=== PATIENT | male | born 1965 | race Caucasian/White ===

== ENCOUNTER 2020-12-13 06:19 | Emergency (ER) | payer BC, SELFPAY ==
--- NOTE | ~2020-12-13 | XR_ITS ---
EXAMINATION: XR KNEE, LEFT CLINICAL INFORMATION: Pain COMPARISON: 07/07/2014 TECHNIQUE: Four views of the left knee. FINDINGS: Total knee arthroplasty with patellar resurfacing. Tibial component is cemented. Components in expected position. No periprosthetic lucency to suggest loosening or infection. Small knee joint effusion suspected. Prepatellar soft tissue swelling is present. XR/XR knee LT 4V IMPRESSION: No acute fracture, dislocation, evidence of hardware failure or complication. Small knee joint effusion.
[2020-12-13 06:34] VITALS: BP 125/86; PULSE 110; RESP 18; TEMP 37.3; O2SAT 95; BMI 29.2
--- NOTE | 2020-12-13 06:54 | ED.FEVER ---
HPI - Fever General Chief Complaint: Nausea/Vomiting/Diarrhea Stated Complaint: Covid symptoms Time Seen by Provider: 12/13/20 06:44 Source: patient Mode of arrival: ambulatory Limitations: no limitations History of Present Illness MD elicited complaint: fever and other (L knee pain, tick bite 3 days ago, COVID swab) Onset (ago): day(s) (2) Context: other (tick bite) Exacerbating factors: nothing Relieving factors: nothing Associated symptoms: diarrhea and other (myalgias, weakness) Related Data Previous Rx's Medication Instructions Recorded doxycycline hyclate 100 mg capsule 100 mg PO BID 14 Days #28 cap 12/13/20 ondansetron 4 mg disintegrating 4 mg PO Q8H PRN #20 tab 12/13/20 tablet Allergies Allergy/AdvReac Type Severity Reaction Status Date / Time No Known Allergies Allergy Verified 12/13/20 06:27 Review of Systems Review of Systems: Constitutional : No Weight loss, pos Fever, pos Chills, pos Fatigue, pos Malaise ENT/Mouth : No sore throat, No Rhinorrhea Eyes: No Eye Pain, No Swelling, No Redness Cardiovascular : No Chest Pain, No SOB, No Dyspnea on Exertion, No Orthopnea, No Edema, No Palpitations Respiratory : No Cough, No Sputum, No Wheezing Gastrointestinal : No Nausea, No Vomiting, pos Diarrhea, No Constipation, No abdominal Pain, No Hematochezia, No Melena Genitourinary : No Dysuria, No Urinary Frequency, No Hematuria, Musculoskeletal : pos joint pain, No Myalgias, pos Joint Swelling Skin : No Skin Lesions, No rash Neuro : No Weakness, No Numbness, No Dizziness, No Headache Psych : No Anxiety/Panic, No Depression Heme/Lymph: No Bruising, No Bleeding,No Lymphadenopathy Endocrine : No Polyuria, No Polydipsia All other systems reviewed and are negative PMFSH Past Medical History Medical History FH: total knee replacement Social History Social History (Updated 12/13/20 @ 07:05 by Opal Eli DO) Patient Tobacco Use Status: Never used Tobacco Advance Directives: No Physical Exam Vital Signs: Vital Signs: Last Vital Signs Temp 99.1 F 12/13/20 06:34 Pulse 110 H 12/13/20 06:34 Resp 18 12/13/20 06:34 BP 125/86 12/13/20 06:34 Pulse Ox 95 12/13/20 06:34 Body Mass Index 29.2 Appearance: Alert. Oriented X3. No acute distress. Eyes: Pupils equal, round and reactive to light. ENT: Pharynx normal. Neck: Normal inspection. Neck supple. CVS: Normal heart rate and rhythm. Pulses normal. Respiratory: No respiratory distress. Breath sounds normal. Abdomen: Soft and nontender. Skin: Skin warm and dry. Normal skin color. Normal skin turgor. Extremities: No lower extremity edema. L knee has small effusion but no erythema no warmth can walk and bend knee Neuro: Oriented X 3. No motor deficit. No sensory deficit. Course Course Course Narrative: negative COVID, not toxic, can tolerate PO, needs to follow closely with PCP and orthopedics MDM - Fever MDM Narrative Medical decision making narrative: 55 yo male with hx of fevers and not feeling well with diarrhea x 2 days - here for COVID swab he was vaccinated in the past. He also is worried his left knee is infected he had a TKR done at [facility] [place] - the incision is well healed, he is walking it is not red it is not hot he can bend his knee and he has had pain x 1 month even before this fever - history is not consistent with septic joint at this time and PE is benign other than mild effusion. Xray ordered. Also reports tick bite about 3 days ago - lyme study sent off given symptoms will start on doxycycline and refer to his orthopedic surgeon Lab Data Result diagrams: 12/13/20 07:59 12/13/20 07:59 Labs: Lab Results 12/13/20 12/13/20 12/13/20 Range/Units 06:33 07:59 07:59 WBC 8.7 (4.8-10.8) X10*3/uL RBC 4.23 L (4.60-5.80) X10*6/uL Hgb 13.0 L (14.0-18.0) g/dl Hct 39.0 L (42-52) % MCV 92.2 (80-98) fL MCH 30.7 (27.0-33.0) pg MCHC 33.3 (31.0-36.0) g/dl RDW 14.2 (11.0-16.0) % Plt Count 137 L (160-400) X10*3/uL MPV 9.1 L (9.4-12.4) fL Immature Gran % (Auto) 0.6 H (0.0-0.4) % Neut % (Auto) 86.3 H (45-73) % Lymph % (Auto) 4.7 L (20-40) % [place] % (Auto) 7.6 (2-11) % Eos % (Auto) 0.6 (0-4) % Baso % (Auto) 0.2 (0-2) % Lymph # (Auto) 0.4 L (1.2-4.9) X10*3/uL [place] # (Auto) 0.7 (0.1-1.2) X10*3/uL Eos # (Auto) 0.1 (0.0-0.4) X10*3/uL Baso # (Auto) 0.0 (0.0-0.2) X10*3/uL Abs Immat Gran (auto) 0.05 H (0.00-0.03) X10*3/uL Absolute Neuts (auto) 7.5 (2.0-8.3) X10*3/uL Absolute Nucleated RBC 0.000 (0.0-0.012) X10*3/uL Nucleated RBC % (auto) 0.0 (0.0-0.2) /100WBC Sodium 138 (135-145) mmol/L Potassium 3.7 (3.3-5.1) mmol/L Chloride 102 (96-108) mmol/L Carbon Dioxide 29 (22-29) mmol/L Anion Gap 11 L (12-20) BUN 13 (9-16) mg/dL Creatinine 1.09 (0.5-1.4) mg/dL Estim Creat Clear Calc 88.0 Estimated GFR > 60 Random Glucose 112 (60-115) mg/dL Calcium 8.9 (8.4-10.2) mg/dL Total Bilirubin 1.0 (0.0-1.0) mg/dL Direct Bilirubin 0.4 (0.0-0.5) mg/dL AST 24 (5-37) U/L ALT 31 (0-40) U/L Alkaline Phosphatase 49 (39-117) U/L Total Protein 7.6 (6.5-8.0) g/dL Albumin 4.4 (3.5-5.0) g/dL COVID-19 ([facility]EXIA) Negative (Negative) COVID-19 Clin Com See Note Discharge Plan Discharge Clinical Impression: Acute viral syndrome Diarrhea Qualifiers: Diarrhea type: unspecified type Qualified Code(s): R19.7 - Diarrhea, unspecified Fever Qualifiers: Fever type: due to other condition Qualified Code(s): R50.81 - Fever presenting with conditions classified elsewhere Tick bite Qualifiers: Encounter type: initial encounter Site of tick bite: lower leg Laterality: right Qualified Code(s): S80.861A - Insect bite (nonvenomous), right lower leg, initial encounter Patient Disposition: Home, Self-Care Instructions: Tick Bite (ED), Fever in Adults (ED), Acute Diarrhea (ED) Additional Instructions: No acute fracture, dislocation, evidence of hardware failure or complication. Small knee joint effusion. PLEASE CONTACT YOUR ORTHOPEDIC SURGEON REGARDING YOUR KNEE your lyme test is pending we will call you with positive result your COVID test was negative it is important you follow with your doctor and repeat a CBC test in 5 days Prescriptions: New doxycycline hyclate 100 mg capsule 100 mg PO BID 14 Days Qty: 28 RF: 0 ondansetron 4 mg tablet,disintegrating 4 mg PO Q8H PRN (Reason: nausea and vomiting) Qty: 20 RF: 0 Referrals: Tommy Guerrero MD [Primary Care Provider] - 5 days
[2020-12-13 07:15] LABS: COVID-19 Test Negative (Negative); IDNOW Serial# 9DD0AD1C
[2020-12-13 08:04] LABS: MANUAL DIFF FLAG NO
[2020-12-13 08:07] LABS: Basophils Percent Auto 0.2 % (0-2); Eosinophils Absolute Auto 0.1 X10*3/uL (0.0-0.4); Eosinophils Percent Auto 0.6 % (0-4); Imm Gran Abs Auto 0.05 X10*3/uL (0.00-0.03); Imm Gran Pct Auto 0.6 % (0.0-0.4); Lymphocytes Absolute Auto 0.4 X10*3/uL (1.2-4.9); Lymphocytes Percent Auto 4.7 % (20-40); Mean Corpuscular HGB Conc 33.3 g/dl (31.0-36.0); Mean Corpuscular Hemoglobin 30.7 pg (27.0-33.0); Mean Corpuscular Volume 92.2 fL (80-98); Mean Platelet Volume 9.1 fL (9.4-12.4); Monocytes Absolute Auto 0.7 X10*3/uL (0.1-1.2); Monocytes Percent Auto 7.6 % (2-11); Neutrophils Absolute Auto 7.5 X10*3/uL (2.0-8.3); Neutrophils Percent Auto 86.3 % (45-73); Platelet Count 137 X10*3/uL (160-400); Red Blood Count 4.23 X10*6/uL (4.60-5.80); Red Cell Distribution Width 14.2 % (11.0-16.0); White Blood Count 8.7 X10*3/uL (4.8-10.8)
[2020-12-13] MEDS: ondansetron HCL 4 MG/2 ML VIAL IVPUSH (08:07)
[2020-12-13] MEDS: 0.9 % Sodium Chloride 1,000 ML 999 ML IVCONT (08:07)
[2020-12-13] MEDS: Acetaminophen 325 MG TABLET 650 MG PO (08:07)
[2020-12-13 08:33] LABS: Alanine Aminotransferase 31 U/L (0-40); Albumin Level 4.4 g/dL (3.5-5.0); Alkaline Phosphatase 49 U/L (39-117); Anion Gap 11 (12-20); Aspartate Amino Transferase 24 U/L (5-37); Bilirubin Direct 0.4 mg/dL (0.0-0.5); Blood Urea Nitrogen 13 mg/dL (9-16); Calcium 8.9 mg/dL (8.4-10.2); Carbon Dioxide 29 mmol/L (22-29); Chloride 102 mmol/L (96-108); Estimated Glomerular Filt Rate > 60; Glucose Random 112 mg/dL (60-115); Potassium 3.7 mmol/L (3.3-5.1); Sodium 138 mmol/L (135-145); Total Protein 7.6 g/dL (6.5-8.0)
[2020-12-14 12:47] LABS: Lyme Abs Screen <0.90 index
== END 2020-12-13 10:48 | disposition home or self-care (01) ==
PROVIDERS: Emergency Provider Emergency Medicine; PCP Internal Medicine
DX: B34.9 Viral infection, unspecified (principal); S80.861A Insect bite (nonvenomous), right lower leg, initial encounter; R50.81 Fever presenting with conditions classified elsewhere; R50.9 Fever, unspecified; R11.2 Nausea with vomiting, unspecified; W57.XXXA Bitten or stung by nonvenomous insect and other nonvenomous arthropods, initial encounter; Y93.9 Activity, unspecified; Y92.9 Unspecified place or not applicable; Y99.9 Unspecified external cause status; Z20.822 Contact with and (suspected) exposure to COVID-19; Z79.899 Other long term (current) drug therapy
CPT/HCPCS: 36415; 73564; 80048; 80076; 85025; 86617; 86618; 87635; 96361; 96374; 99283; 99284; J2405

== ENCOUNTER 2021-10-15 11:52 | Outpatient (REF) | payer BC, SELFPAY ==
--- NOTE | ~2021-10-15 | XR_ITS ---
EXAMINATION: XR CHEST CLINICAL INFORMATION: Cough. COMPARISON: None TECHNIQUE: 2 views of the chest were obtained. FINDINGS: Mild pleural thickening seen laterally in the midlung bazan bilaterally, right greater than left. The lungs appear clear. The heart is unremarkable. Tiny to small calcified mediastinal and hilar lymph nodes are seen. The soft tissues are unremarkable. XR/XR chest 2V IMPRESSION: 1. Mild pleural thickening laterally in the midlung bazan bilaterally may be projectional or chronic. No definitive acute cardiopulmonary process. 2. Small calcified mediastinal/hilar lymph nodes suggesting old granulomatous disease such as sarcoidosis. Correlate with patient history.
== END 2021-10-15 11:53 | disposition home or self-care (01) ==
LOC: HO.HMGCX 11:52
PROVIDERS: PCP Internal Medicine; Visit Provider Physician Assistant Medical
DX: R05.9 Cough, unspecified (principal)
CPT/HCPCS: 71046